=== PATIENT | male | born 1950 | race Caucasian/White ===

== ENCOUNTER → 2018-07-19 07:42 | Day surgery (SDC) | payer MEDICARE ==
[~2018-07-19 07:42] MED LIST: Acetaminophen TAB* 325 MG PO PRN; Buffered Lidocaine 0.9% SYRIN* 5 ML/SYR SYRINGE INTRADERM ONE; Bupivacaine 0.5% W/EPI SDV* 30 ML VIAL ONE; Dexamethasone IV* 4 MG/ML 1 ML (4 MG) ONE; DiMENhydriNATE IV* 50 MG/ML VIAL IV PUSH PRN; HYDROcodone/ACETAMIN 5-325 MG* 1 TAB ONE; HYDROcodone/ACETAMIN 5-325 MG* 1 TAB PO PRN; Ketorolac INJ* 30 MG/ML 1 ML VIAL ONE; Lidocaine 1% INJ* 10 MG/ML 30 ML SDV ONE; Lidocaine 2% PF * 5 ML VIAL ONE; Midazolam* 1 MG/ML 2 ML VIAL (2 MG) ONE; Naloxone* 0.4 MG/ML 1 ML VIAL IV PRN; Ondansetron INJ* 2 MG/ML VIAL IV PRN; PROCHLORPERAZINE INJ 5 MG/ML 2 ML VIAL IV PRN; Propofol* 10 MG/ML 20 ML BTL IV PUSH ONE; ceFAZolin 2 GM PREMIX in ORs 2 GM/50 ML BAG IVPB ONE; diPHENhydraMINE IV* 50 MG/ML 1 ml VIAL (BENADRYL) IV PRN; fentaNYL* 50 MCG/ML 2 ML VIAL (100 MCG VIAL) IV PRN; fentaNYL* 50 MCG/ML 2 ML VIAL (100 MCG VIAL) ONE
[2018-07-19 11:17] VITALS: BP 160/89
--- NOTE | 2018-07-19 13:11 | OP ---
CC: Dr. Denzel Greene; Olayinka Harris MD * DATE OF OPERATION: 07/19/18 - [facility] DATE OF : 50 SURGEON: Andres Cantrell MD. SECURITY MANAGER: None. ANESTHESIOLOGIST: Dr. Live. ANESTHESIA: LMAC anesthesia. PRE-OP DIAGNOSIS: Left inguinal hernia. POST-OP DIAGNOSIS: Left inguinal hernia. OPERATIVE PROCEDURE: Left inguinal hernia repair with mesh. DESCRIPTION OF PROCEDURE: The patient was supine on the operating room table. After adequate intravenous sedation, compression stockings, Kendrick Hugger warmer, and intravenous antibiotics, the left groin was anesthetized and approximately 4 cm incision was created, carried down to the tissue layers, to the external oblique, which was opened in the direction of its fibers. Cord structures were encircled with a Annabelle drain, tented upward. There was an indirect space hernia, which was dissected free and reduced and a cone mesh plug was placed into the internal ring, sutured with 2-0 Vicryl. A second piece of mesh was placed over the inguinal floor, sutured at the tubercle. Tails were split, brought around the cord structures, tacked down laterally. External oblique was closed over the top with 2-0 Vicryl, Huyen's with 3-0 Vicryl, skin with 4- 0 Prolene followed by sterile dressing. He tolerated the procedure well, was awakened, and brought to Recovery in good condition. No complications, no drains. No pathologic specimens. Sponge and instrument counts correct. Estimated blood loss 10 mL. [id number] #: [id number]
== END | disposition home or self-care (01) ==
LOC: OR 07:42
PROVIDERS: ATTEND Surgery
DX: K40.90 Unilateral inguinal hernia, without obstruction or gangrene, not specified as recurrent (principal); R19.5 Other fecal abnormalities; Z87.891 Personal history of nicotine dependence; E05.00 Thyrotoxicosis with diffuse goiter without thyrotoxic crisis or storm
CPT/HCPCS: C1781; J0690; J1100; J1885; J2250; J2704; J3010